=== PATIENT | female | born 1990 | race Caucasian/White ===

== ENCOUNTER 2022-08-30 17:04 | Emergency (ER) | payer MEDICAID, SELFPAY ==
--- NOTE | 2022-08-30 17:09 | ED_ITS ---
HPI - General Adult General Time Seen by Provider: 17:09 Date Seen: 08/30/22 Chief complaint: Vaginal Bleeding Stated complaint: Vaginal bleeding Time Seen by Provider: 08/30/22 17:06 Source: patient, RN notes reviewed and old records reviewed Mode of arrival: ambulatory Limitations: no limitations History of Present Illness HPI narrative: 31y/o female presents with vaginal bleeding. Patient notes her. Started about 1 week ago. Usually lasts for 5 days but she has continued to have heavy bleeding now. Minimal cramping. Denies chest pain or shortness of breath, denies lightheadedness or dizziness. Denies nausea or vomiting. Before this started, does note that she felt like she had a little fever that she was getting sick. Denies any recent fever. No lower extremity swelling. Related Data Previous Rx's Medication Instructions Recorded drospirenone 3 mg-ethinyl 1 tab PO DAILY #28 tabs 08/30/22 estradiol 0.02 mg tablet (RAQUEL (28)) Allergies Allergy/AdvReac Type Severity Reaction Status Date / Time No Known Drug Allergies Allergy Verified 08/30/22 17:13 Exam Narrative: Exam Narrative: General: Well-developed and well-nourished, no acute distress Head: Atraumatic and normocephalic Eyes: Pupils are equal reactive, extraocular motions intact, conjunctiva clear ENT: External nose and ears are normal, posterior pharynx without erythema or exudate Neck: No midline cervical tenderness, full spontaneous range of motion the neck, trachea midline, no adenopathy Heart: Regular rate and rhythm 3 /6 systolic murmur Lungs: Clear to auscultation bilaterally without wheezes or crackles Abdomen: Soft, nontender, nondistended with active bowel sounds Musculoskeletal: No tenderness, deformity, or edema Neurologic: Awake, alert, and oriented x3, no gross focal neurologic deficits, cranial nerves intact as tested Psych: Mood and affect are appropriate Skin: No rashes Const: Vital Signs, click to edit/add: Vital Signs - 24 hr 08/30/22 17:13 Temperature 99 F Pulse Rate [Pulse Oximeter] 92 Respiratory Rate 20 Blood Pressure [Ri ght Upper Arm] 136/85 Pulse Oximetry 100 Oxygen Delivery Me thod Room Air Course Course Hospital Course: Patient seen and examined, prior records are reviewed. Patient presents today with vaginal bleeding, timing initially was similar to when she would expect her menstrual cycle to start but has lasted longer than usual with heavier bleeding. On exam, vital is stable, she does have a 3 of 6 systolic murmur of unknown significance. Labs and ultrasound are ordered. Reevaluation(s) Time of Reevaluation #1: 18:47 Reevaluation #1: Chaperoned pelvic exam performed. Small amount of clot removed from the vaginal vault and small trickle of blood from the os which is closed. No cervical motion tenderness. Will discuss with microfiche duplicator Time of Reevaluation #2: 18:53 Reevaluation #2: Care discussed with Dr. Florian Pérez, microfiche duplicator who recommends starting oral contraceptive and follow-up with the microfiche duplicator next week. Vital Signs Vital signs: Initial Vital Signs Temperature 99 F 08/30/22 17:13 Temperature Source Temporal Artery Scan 08/30/22 17:13 Pulse Rate 92 08/30/22 17:13 Respiratory Rate 20 08/30/22 17:13 Blood Pressure 136/85 08/30/22 17:13 Blood Pressure Mean 102 08/30/22 17:13 Pulse Oximetry 100 08/30/22 17:13 Oxygen Delivery Method Room Air 08/30/22 17:13 Vital Signs Temperature 99 F 08/30/22 17:13 Pulse Rate 92 08/30/22 17:13 Respiratory Rate 20 08/30/22 17:13 Blood Pressure 136/85 08/30/22 17:13 Pulse Oximetry 100 08/30/22 17:13 Oxygen Delivery Method Room Air 08/30/22 17:13 Temperature 99 F 08/30/22 17:13 Pulse Rate 92 08/30/22 17:13 Respiratory Rate 20 08/30/22 17:13 Blood Pressure 136/85 08/30/22 17:13 Pulse Oximetry 100 08/30/22 17:13 Oxygen Delivery Method Room Air 08/30/22 17:13 Medical Decision Making Lab Data Labs: Lab Results 08/30/22 08/30/22 Range/Units 17:20 18:05 WBC 8.52 (4.50-11.00) K/uL RBC 3.83 L (4.00-5.20) m/uL Hgb 10.6 L (12.0-16.0) gm/dL Hct 31.8 L (33.0-51.0) % MCV 83 (80-100) fL MCH 28 (26-34) pg MCHC 33 (32-36) gm/dL RDW Coeff of [place] 13.2 (11.5-15.5) % Plt Count 287 (140-440) K/uL Neut % (Auto) 63.9 (42.0-72.0) % Lymph % (Auto) 26.4 (20-44) % Calloway % (Auto) 5.4 (0.0-11.0) % Eos % (Auto) 3.3 (0.0-7.0) % Baso % (Auto) 0.5 (0.0-3.0) % Neut # (Auto) 5.45 (1.7-7.0) K/uL Lymph # (Auto) 2.25 (0.90-2.90) K/uL Calloway # (Auto) 0.50 (0.00-0.90) K/UL Eos # (Auto) 0.28 (0.00-0.50) K/uL Baso # (Auto) 0.04 (0.00-0.30) K/uL Abs Immat Gran (auto) 0.04 (0.00-0.30) K/uL Imm/Tot Granulo (auto) 0.5 % INR 0.99 (0.91-1.10) Sodium 137 (135-149) mmol/L Potassium 3.9 (3.6-5.1) mmol/L Chloride 104 (96-114) mmol/L Carbon Dioxide 25 (20-32) mmol/L BUN 7 (5-24) mg/dL Creatinine 0.5 (0.5-1.5) mg/dL Estimated Creat Clear 130.12 Estimated GFR 129 ml/min Glucose 123 H (60-115) mg/dL Calcium 8.7 (8.4-10.6) mg/dL Urine HCG, Qual Negative (Negative) Discharge Plan Discharge Clinical Impression: Metrorrhagia Condition: Stable Instructions: Abnormal (Dysfunctional) Uterine Bleeding (ED) Additional Instructions: Start control as prescribed. Follow-up next week with your microfiche duplicator or the [facility] at [phone] Activity Level: No Restrictions Discharge Diet: Regular Prescriptions: New drospirenone-ethinyl estradiol [RAQUEL (28)] 3-0.02 mg tablet 1 tab PO DAILY Qty: 28 0RF Stand Alone Forms: MyHealth Info Instructions
[2022-08-30 17:13] VITALS: BP 136/85; PULSE 92; RESP 20; TEMP 37.2; O2SAT 100; BMI 32.9
--- NOTE | 2022-08-30 17:31 | CRLHL7_ITS ---
For Patients: As a result of the Century Cures Act, medical imaging exams and procedure reports are released immediately into your electronic medical record. You may view this report before your referring provider. If you have questions, please contact your health care provider. INDICATION: Dysfunctional uterine bleeding. TECHNIQUE: Ultrasound pelvis transvaginal. Real-time sonographic images with spectral and color Doppler imaging of the ovaries were obtained. COMPARISON: None. FINDINGS: Uterus: 8.3 x 5.0 x 5.3 cm. Normal echotexture of the myometrium. No masses. Endometrium: Endometrial thickness measures 10 mm. Trace blood products in the endometrial cavity. Right ovary measures 3.9 x 2.0 x 2.9 cm and left ovary measures 4.0 x 2.7 x 3.9 cm. Bilateral ovarian cysts. Normal arterial and venous blood flow is demonstrated in both ovaries. Cul-de-sac: No significant free fluid. IMPRESSION: 1. Trace blood products in the endometrial cavity. 2. Bilateral ovarian cysts. 3. Otherwise unremarkable uterus and ovaries. Dictated by Dre Langston MD @ 08/30/2022 7:21:50 PM (Electronically Signed)
[2022-08-30 17:33] LABS: Ur HCG Qualitative* Negative (Negative)
[2022-08-30 18:12] LABS: Basophils Absolute Auto 0.04 K/uL (0.00-0.30); Basophils Percent Auto 0.5 % (0.0-3.0); Eosinophils Absolute Auto 0.28 K/uL (0.00-0.50); Eosinophils Percent Auto 3.3 % (0.0-7.0); Hematocrit 31.8 % (33.0-51.0); Hemoglobin* 10.6 gm/dL (12.0-16.0); Immature Granulocytes Abs Auto 0.04 K/uL (0.00-0.30); Immature Granulocytes Pct Auto 0.5 %; Lymphocytes Absolute Auto 2.25 K/uL (0.90-2.90); Lymphocytes Percent Auto 26.4 % (20-44); Mean Corpuscular HGB Conc 33 gm/dL (32-36); Mean Corpuscular Hemoglobin 28 pg (26-34); Mean Corpuscular Volume 83 fL (80-100); Monocytes Percent Auto 5.4 % (0.0-11.0); Neutrophils Absolute Auto 5.45 K/uL (1.7-7.0); Neutrophils Percent Auto 63.9 % (42.0-72.0); Platelet Count* 287 K/uL (140-440); RDW Coefficient of Variation % 13.2 % (11.5-15.5); Red Blood Count 3.83 m/uL (4.00-5.20); White Blood Count* 8.52 K/uL (4.50-11.00)
[2022-08-30 18:14] LABS: Slide Review Reflex No
[2022-08-30 18:24] LABS: Chloride* 104 mmol/L (96-114)
[2022-08-30 18:25] LABS: Potassium* 3.9 mmol/L (3.6-5.1); Sodium* 137 mmol/L (135-149)
[2022-08-30 18:27] LABS: Creatinine* 0.5 mg/dL (0.5-1.5); Est. Creatinine Clearance* 130.12; Estimated Glomerular Filt Rate 129 ml/min; INR 0.99 (0.91-1.10); Prothrombin Time 13.7 Seconds
[2022-08-30 18:28] LABS: Blood Urea Nitrogen* 7 mg/dL (5-24); Calcium* 8.7 mg/dL (8.4-10.6); Carbon Dioxide* 25 mmol/L (20-32); Glucose* 123 mg/dL (60-115)
--- NOTE | 2022-08-30 18:40 | ED.NURSE ---
Chaperoned Dr. Lopez for pelvic exam. Pt tolerated well.
== END 2022-08-30 19:19 | disposition home or self-care (01) ==
PROVIDERS: Emergency Provider Family Medicine; PCP Family Medicine
DX: N92.1 Excessive and frequent menstruation with irregular cycle (principal)
CPT/HCPCS: 36415; 76830; 80048; 81025; 85025; 85610; 99284; 99285